=== PATIENT | male | born 1955 ===

== ENCOUNTER 2017-06-03 13:02 | Emergency (ER) | payer OTHER ==
[2017-06-03 13:10] VITALS: TEMP 97.7
--- NOTE | 2017-06-03 13:31 | C.PDOC ---
History Of Present Illness Patient is a 61 y/o M presenting with pain in his lumbar back radiating into his R leg. He reports that he has been evaluated at [facility] [place] [place], and [facility] and diagnosed with sciatica. He reports that his PMD Dr. 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 Patient reports that he has follow-up with Neurosurgery/ Spine next week. Patient reports that none of the medication he has been prescribed for pain has helped. Time Seen by Provider: 06/03/17 13:18 Chief Complaint (Nursing): Back Pain Past Medical History Vital Signs: Last Vital Signs Temp 97.7 F 06/03/17 13:06 Pulse 93 H 06/03/17 13:06 Resp 20 06/03/17 13:06 BP 150/93 H 06/03/17 13:06 Pulse Ox 97 06/03/17 13:44 - Medical History PMH: Back Problems, Diabetes, Hypercholesterolemia Denies: Chronic Kidney Disease Surgical History: Back Surgery (1990) - [facility] Procedures INCIS W REM OF FORIEGN BODY OR DEV FROM SKIN & SUBCUT TISSUE (06/12/13) Family History: States: No Known Family Hx - Social History Hx Tobacco Use: No Hx Alcohol Use: No Hx Substance Use: No - Immunization History Hx Tetanus Toxoid Vaccination: Yes Hx Influenza Vaccination: No (is receiving next wednesday as per pt) Hx Pneumococcal Vaccination: No Review Of Systems Constitutional: Negative for: Fever, Chills Cardiovascular: Negative for: Chest Pain, Palpitations, Orthopnea, Edema, Light Headedness Respiratory: Negative for: Cough, Shortness of Breath, SOB with Excertion, Wheezing Gastrointestinal: Negative for: Nausea, Vomiting, Abdominal Pain, Diarrhea Genitourinary: Negative for: Dysuria Musculoskeletal: Positive for: Back Pain Skin: Negative for: Rash Neurological: Negative for: Weakness, Numbness, Incoordination Physical Exam - Physical Exam Appears: Well, Non-toxic, No Acute Distress Skin: Normal Color, Warm, Dry Head: Atraumatic, Normacephalic Eye(s): bilateral: Normal Inspection, PERRL, EOMI Neck: Normal, Supple Chest: Symmetrical Cardiovascular: Rhythm Regular Respiratory: Normal Breath Sounds, No Rales, No Rhonchi, No Wheezing Gastrointestinal/Abdominal: Soft, No Tenderness Back: Normal Inspection Extremity: Normal ROM Gait: Steady ED Course And Treatment O2 Sat by Pulse Oximetry: 97 Medical Decision Making Medical Decision Making: Prior imaging reviewed (MRI as well as negative u/s, ankle and tib/fib xray). Presentation consistent with sciatica. No new trauma and no neurologic deficits. Patient has outpatient follow-up and requesting pain medication. [place] [facility] reviewed. Explained to patient that i could provide 4 day course but that he would need to follow-up with PMD for further medication. Disposition - Disposition Disposition: HOME/ ROUTINE Disposition Time: 14:24 Condition: GOOD Additional Instructions: Follow up with your PMD for chronic back pain. Follow-up with your Neurosurgeon as scheduled. Percocet for severe pain. Return to ED if you develop worsening symptoms or any weakness, numbness, tingling Prescriptions: oxyCODONE/Acetaminophen [Percocet 5/325 mg Tab] 1 ea PO Q6 #15 tab Instructions: Chronic Back Pain (ED) Forms: [employer] ([place] - Clinical Impression Clinical Impression: Low back pain
[2017-06-03] MEDS ORDERED: Oxycodone/Acetaminophen 5/325 mg Tab PO STA (13:37)
[2017-06-03] MEDS ORDERED: Oxycodone/Acetaminophen 5/325 mg Tab ONE (13:54)
[2017-06-03 14:31] VITALS: BP 127/81; PULSE 74; RESP 18; O2SAT 96
== END 2017-06-03 14:35 | disposition home or self-care (01) ==
LOC: C.ER 13:02
DX: M54.5 Low back pain (principal)